=== PATIENT | female | born 1950 | race Caucasian/White ===

== ENCOUNTER 2017-07-26 08:55 | Outpatient (CLI) | payer MEDICARE, OTHER | END 2017-07-26 08:56 | disposition home or self-care (01) | LOC: DI 08:55 | PROVIDERS: ATTEND Internal Medicine Cardiovascular Disease | DX: I77.810 Thoracic aortic ectasia (principal); I51.7 Cardiomegaly | CPT/HCPCS: 93306 ==

== ENCOUNTER 2017-07-26 08:57 | Outpatient (CLI) | payer MEDICARE, OTHER ==
--- NOTE | 2017-07-27 12:44 | Mammography Report ---
DIGITAL SCREENING MAMMOGRAM: 07/26/2017 CLINICAL INDICATION: A 66-year-old with history of benign biopsy for screening. COMPARISON: Films from [place], [place] dated 05/17/2014, 05/23/2013, 06/18/2008. TECHNIQUE: Routine CC and MLO projections were obtained of the breasts. FINDINGS: The breasts again demonstrate heterogeneously dense fibroglandular parenchyma bilaterally. Coarse and punctate, typically benign calcifications are present. Small circumscribed nodules are stable. No suspicious masses, clustered microcalcifications, or regions of architectural distortion are identified. IMPRESSION: BENIGN FINDINGS. RECOMMENDATION: Routine annual screening unless otherwise clinically indicated. BIRADS CATEGORY 2 - BENIGN FINDINGS. STANDARD QUALIFYING STATEMENTS 1. This examination was reviewed with the aid of Computer-Aided Detection (CAD). 2. A negative or benign imaging report should not delay biopsy if clinically suspicious findings are present. Consider surgical consultation if warranted. More than 5% of cancers are not identified by i maging. 3. Dense breasts may obscure an underlying neoplasm. JOB #: [id number] EXT JOB #:[id number]
== END 2017-07-26 08:58 | disposition home or self-care (01) ==
LOC: DI 08:57
PROVIDERS: ATTEND Internal Medicine
DX: Z12.31 Encounter for screening mammogram for malignant neoplasm of breast (principal)
CPT/HCPCS: 77067

== ENCOUNTER 2017-08-03 11:58 | Outpatient (CLI) | payer MEDICARE, OTHER ==
--- NOTE | 2017-08-03 18:55 | XRAY Report ---
TWO VIEW CHEST: 08/03/2017 CLINICAL INDICATION: Dyspnea. COMPARISON: 07/29/2016 CT. Frontal and lateral views of the chest demonstrate a normal cardiac silhouette. The lungs are clear. No effusion or pneumothorax is present. IMPRESSION: NORMAL CHEST. JOB #: [id number] EXT JOB #:[id number]
== END 2017-08-03 11:59 | disposition home or self-care (01) ==
LOC: DI.S 11:58
PROVIDERS: ATTEND Nurse Practitioner Family
DX: R06.00 Dyspnea, unspecified (principal); R05 Cough
CPT/HCPCS: 71020

== ENCOUNTER 2017-12-24 14:43 | Outpatient (CLI) | payer MEDICARE, OTHER ==
--- NOTE | 2017-12-25 14:16 | XRAY Report ---
THREE VIEW RIGHT SHOULDER: 12/24/2017 CLINICAL INDICATION: Pain. FINDINGS: AP, oblique, scapular Y views of the right shoulder demonstrate no evidence of fracture or dislocation. Mild degenerative changes are seen in the acromioclavicular joint. There is no foreign body in the soft tissues. IMPRESSION: MILD DEGENERATIVE CHANGES OF THE RIGHT ACROMIOCLAVICULAR JOINT. TD: 12/25/2017 14:14
--- NOTE | 2017-12-25 14:17 | XRAY Report ---
THREE VIEW LEFT KNEE: 12/24/2017 CLINICAL INDICATION: Pain. FINDINGS: AP, lateral, sunrise views of the left knee demonstrate mild osteoarthritis, with small marginal osteophytes. There is no evidence of acute fracture or dislocation. No effusion is present. IMPRESSION: MILD OSTEOARTHRITIS. TD: 12/25/2017 14:15
== END 2017-12-24 14:44 | disposition home or self-care (01) ==
LOC: DI.S 14:43
PROVIDERS: ATTEND Nurse Practitioner Family
DX: M25.562 Pain in left knee (principal); M25.511 Pain in right shoulder

== ENCOUNTER 2019-01-19 10:39 | Outpatient (CLI) | payer OTHER, MEDICARE ==
--- NOTE | 2019-01-19 14:15 | XRAY Report ---
Reason: NECK PAIN Procedure Date: 01/19/2019 Accession Number: [id number] / [id number] Procedure: XR - Cervical Spine 2 View CPT Code: FULL RESULT: EXAM: CERVICAL SPINE RADIOGRAPHY EXAM DATE: 01/19/2019 10:58 AM. CLINICAL HISTORY: Neck pain. COMPARISONS: None. TECHNIQUE: 3 views. FINDINGS: Alignment: Normal. No spondylolisthesis or scoliosis. Bones: The cervical vertebral bodies and posterior elements are well visualized from the skull base through C7-T1. No fractures or bone lesions. Disks: Mild disk space narrowing at C5-C6. Minor anterior osteophytosis at C3-C4 and C5-C6. Facets: No significant degenerative disease. Soft Tissues: Normal. No prevertebral soft tissue swelling. The visualized lung apices are clear. IMPRESSION: Normal cervical spine radiography for age. RADIA
== END 2019-01-19 10:40 | disposition home or self-care (01) ==
LOC: DI 10:39
PROVIDERS: ATTEND Nurse Practitioner Family
DX: M54.2 Cervicalgia (principal)
CPT/HCPCS: 72040

== ENCOUNTER 2023-01-13 11:01 | Outpatient (CLI) | payer MEDICARE, OTHER ==
--- NOTE | 2023-01-13 17:27 | CT Report ---
PROCEDURE: HEAD WO INDICATIONS: TRAUMATIC HEAD INJURY TECHNIQUE: Noncontrast 4.5 mm thick angled axial sections acquired from the foramen magnum to the vertex. For r adiation dose reduction, the following was used: automated exposure control, adjustment of mA and/or kV according to patient size. COMPARISON: None. FINDINGS: Image quality: Excellent. CSF spaces: Basal cisterns are patent. No extra-axial fluid collections. Ventricles are normal in size and shape. Brain: No midline shift. No intracranial masses or hemorrhage. Becerril-white matter interface is norm al. Skull and face: Calvarium and visualized facial bones are intact, without suspicious lesions. Sinuses: Visualized sinuses and mastoids are clear. IMPRESSION: Noncontrast head CT within normal limits for age. No intracranial hemorrhage is seen. Reviewed by: Edison Perla MD on 01/13/2023 4:26 PM [facility] Approved by: Edison Perla MD on 01/13/2023 4:26 PM [facility] Station ID: [id number]
== END 2023-01-13 11:02 | disposition home or self-care (01) ==
LOC: DI 11:01
PROVIDERS: ATTEND Internal Medicine
DX: S09.90XA Unspecified injury of head, initial encounter (principal)

== ENCOUNTER 2023-05-03 08:00 | Outpatient (CLI) | payer MEDICARE, OTHER ==
--- NOTE | 2023-05-03 16:21 | XRAY Report ---
PROCEDURE: Chest 2 View X-Ray INDICATIONS: SHORTNESS OF BREATH TECHNIQUE: 2 views of the chest were acquired. COMPARISON: None. FINDINGS: Surgical changes and devices: None. Lungs and pleura: No pleural effusions or pneumothorax. Lungs are clear. Mediastinum: Mediastinal contours appear normal. Heart size is normal. Bones and chest wall: No suspicious bony lesions. Overlying soft tissues appear unremarkable. IMPRESSION: No acute cardiopulmonary process. Reviewed by: Laron De Santiago MD on 05/03/2023 4:20 PM PDT Approved by: Laron De Santiago MD on 05/03/2023 4:20 PM PDT Station ID: [id number]
== END 2023-05-03 23:59 | disposition home or self-care (01) ==
LOC: DI.S 08:00
PROVIDERS: ATTEND Physician Assistant
DX: R06.02 Shortness of breath (principal); R07.9 Chest pain, unspecified

== ENCOUNTER 2023-12-20 08:00 | Outpatient (CLI) | payer MEDICARE, OTHER ==
--- NOTE | 2023-12-20 14:42 | XRAY Report ---
PROCEDURE: Foot 3+V LT INDICATIONS: CONTUSION OF LEFT FOOT TECHNIQUE: 3 views of the foot were acquired. COMPARISON: None. FINDINGS: Bones: Minimally displaced intra-articular fracture at the medial base of the 5th proximal phalanx. Soft tissues: Soft tissue edema is present at the lateral forefoot. IMPRESSION: Minimally displaced intra-articular fracture at the medial 5th proximal phalangeal base. Reviewed by: Uche Porter MD on 12/20/2023 2:41 PM PDT Approved by: Uche Porter MD on 12/20/2023 2:41 PM PDT Station ID: [id number]
--- NOTE | 2023-12-20 14:46 | XRAY Report ---
PROCEDURE: Toe(s) 2+V LT INDICATIONS: CONTUSION OF LEFT LESSER TOES TECHNIQUE: AP view of the foot and 3 views of the 5th toe acquired. COMPARISON: None. FINDINGS: Bones: Minimally displaced articular fracture of the medial 5th proximal phalangeal base. Soft tissues: No suspicious soft tissue densities. IMPRESSION: Minimally displaced intra-articular fracture at the medial 5th proximal phalangeal base. Reviewed by: Uche Porter MD on 12/20/2023 2:44 PM PDT Approved by: Uche Porter MD on 12/20/2023 2:44 PM PDT Station ID: [id number]
== END 2023-12-20 23:59 | disposition home or self-care (01) ==
LOC: DI.S 08:00
PROVIDERS: ATTEND Physician Assistant Medical
DX: S92.512A Displaced fracture of proximal phalanx of left lesser toe(s), initial encounter for closed fracture (principal)
CPT/HCPCS: 73660